=== PATIENT | female | born 1945 | race Caucasian/White ===

== ENCOUNTER 2017-01-27 19:34 | Emergency (ER) | payer OTHER ==
[2017-01-27 19:53] VITALS: O2SAT 97
[2017-01-27 21:45] LABS: EOS % 1.7 % (0.0-4.0); HEMATOCRIT 25.8 % (34.0-47.0); LYMPH # 0.4 K/uL (1.0-4.3); LYMPH % 14.7 % (20.0-40.0); MEAN CELL VOLUME 90.9 fL (81.0-99.0); MEAN CORPUSCULAR HEMOGLOBIN 28.6 pg (27.0-31.0); MEAN CORPUSCULAR HGB CONC 31.5 g/dL (33.0-37.0); MEAN PLATELET VOLUME 9.8 fL (7.2-11.7); MONO # 0.4 K/uL (0.0-0.8); MONO % 13.9 % (0.0-10.0); NRBC % 0.1 % (0.0-2.0); RED CELL DISTRIBUTION WIDTH 15.5 % (11.5-14.5); WHITE BLOOD COUNT 2.7 K/uL (4.8-10.8)
[2017-01-27 21:50] LABS: BILIRUBIN,TOTAL 0.3 mg/dL (0.2-1.3); CALCIUM 6.8 mg/dl (8.6-10.4); POTASSIUM 4.5 mmol/L (3.6-5.2)
[2017-01-27 22:07] LABS: ALB/GLOB RATIO 1.9 (1.0-2.1)
--- NOTE | 2017-01-27 22:12 | C.PDOC ---
History Of Present Illness Patient is a 71 y/o female who presents to the ED by PMD for high BUN, creatinine, and potassium levels. Patient recently moved from [place] and does not have a physician. Admits to Hx of renal insufficiency. Denies any CP, palpitations, or SOB. Patient is speaking in complete sentences. Time Seen by Provider: 01/27/17 22:12 Chief Complaint (Nursing): Abnormal Labs History Per: Patient History/Exam Limitations: no limitations Onset/Duration Of Symptoms: Days Current Symptoms Are (Timing): Still Present Severity: Moderate Recent travel outside of the [place]: Yes (moved from [place]) Additional History Per: Patient Past Medical History Reviewed: Historical Data, Nursing Documentation, Vital Signs Vital Signs: Last Vital Signs Temp 98.7 F 01/27/17 22:12 Pulse 89 01/27/17 22:12 Resp 15 01/27/17 22:12 BP 132/71 01/27/17 22:12 Pulse Ox 97 01/27/17 22:31 - Medical History PMH: Anemia, HTN, Chronic Kidney Disease Other PMH: Renal insufficiency Surgical History: No Surg Hx Family History: States: No Known Family Hx - Social History Hx Alcohol Use: No Hx Substance Use: No - Immunization History Hx Influenza Vaccination: No Hx Pneumococcal Vaccination: No Review Of Systems Cardiovascular: Negative for: Chest Pain, Palpitations Respiratory: Negative for: Shortness of Breath Physical Exam - Physical Exam Appears: Well, Non-toxic, No Acute Distress Skin: Dry Head: Normacephalic Oral Mucosa: Moist Chest: Symmetrical Cardiovascular: Rhythm Regular, No Murmur Respiratory: Normal Breath Sounds, No Rales, No Rhonchi, No Wheezing, Other ( speaking in complete sentences) Gastrointestinal/Abdominal: Soft, No Tenderness Extremity: Normal ROM (x4) Neurological/Psych: Oriented x3, Normal Speech, Normal Cognition ED Course And Treatment - Laboratory Results Result Diagrams: 01/27/17 21:31 01/27/17 21:31 O2 Sat by Pulse Oximetry: 97 (room air) Pulse Ox Interpretation: Normal Progress Note: EKG ordered. Disposition Counseled Patient/Family Regarding: Studies Performed, Diagnosis, Need For Followup - Disposition Referrals: [facility] [Outside] [facility] [Outside] Karlee Mata MD [Staff Provider] - Disposition: HOME/ ROUTINE Disposition Time: 22:12 Condition: FAIR Prescriptions: Minoxidil 2.5 mg PO BID #30 tab Instructions: Chronic Kidney Disease (ED), Impaired Kidney Function (ED), Anemia (DC) Forms: [employer] ([employer]) Print Language: BELARUSIAN - Clinical Impression Clinical Impression: Chronic renal insufficiency, Anemia of renal disease - Scribe Statement The provider has reviewed the documentation as recorded by the Scribe Mikaela Morocho All medical record entries made by the Scribe were at my direction and personally dictated by me. I have reviewed the chart and agree that the record accurately reflects my personal performance of the history, physical exam, medical decision making, and the department course for this patient. I have also personally directed, reviewed, and agree with the discharge instructions and disposition.
[2017-01-27 22:13] VITALS: BP 132/71; PULSE 89; RESP 15; TEMP 98.7
--- NOTE | 2017-01-28 18:22 | CARD ---
APPROVED REPORT EKG Measurement Heart [id number] <Conclusion> Normal sinus rhythm Left axis deviation Right bundle branch block Abnormal ECG
== END 2017-01-27 23:48 | disposition home or self-care (01) ==
LOC: C.ER 19:34
DX: I12.9 Hypertensive chronic kidney disease with stage 1 through stage 4 chronic kidney disease, or unspecified chronic kidney disease (principal); N18.9 Chronic kidney disease, unspecified; D63.1 Anemia in chronic kidney disease